=== PATIENT | female | born 1965 | race Caucasian/White ===

== ENCOUNTER → 2017-07-04 | Outpatient (CLI) | payer BC ==
[~2017-07-04] MED LIST: CARDIZEM CD 18180 MG PO; MOTRIN 600600 MG/TAB PO; NORCO 325 MG-51 TAB PO; PERCOCET 325 MG1 TA2 PO; SYNTHROID0.075 MG/T PO; TRICOR145 MG PO
== END ==
LOC: MC.RAD 16:43
DX: Z12.31 Encounter for screening mammogram for malignant neoplasm of breast (principal)

== ENCOUNTER → 2018-08-26 | Outpatient (CLI) | payer BC | LOC: MC.RAD 15:50 | DX: Z12.31 Encounter for screening mammogram for malignant neoplasm of breast (principal) ==

== ENCOUNTER → 2019-09-14 | Outpatient (CLI) | payer BC | LOC: MC.RAD 14:22 | DX: Z12.31 Encounter for screening mammogram for malignant neoplasm of breast (principal) ==

== ENCOUNTER 2020-06-23 06:33 | Day surgery (SDC) | payer BC ==
[~2020-06-23] VITALS: Ht 160 cm; Wt 63.1 kg
[2020-06-23 07:06] VITALS: BP 136/87; PULSE 75; TEMP 98.2
[2020-06-23] MEDS ORDERED: CARDIZEM CD 24240 MG PO (07:18)
[2020-06-23] MEDS ORDERED: LIPITOR20 MG PO (07:18)
[2020-06-23] MEDS ORDERED: COZAAR 25MG25 MG/TAB PO (07:18)
[2020-06-23] MEDS ORDERED: GLUCOPHAGE500 MG/TAB PO (07:20)
[2020-06-23] MEDS ORDERED: ASPIRIN 81M81 MG/TA2 PO (07:20)
[2020-06-23] MEDS ORDERED: ONE-A-DAY ESSE1 EACH PO (07:21)
[2020-06-23 08:25] VITALS: BP 114/64; PULSE 74; TEMP 97
--- NOTE | 2020-06-23 08:25 | NUR ---
Patient brought back to [facility] [address] via cart. Ambulated to recliner with one assist. Placed on monitors, stable. Alert and oriented. Denies pain or nausea. Requests juice and toast. updated via phone. To be driven home by mother. Warm blanket provided, call hernandez within reach. Will continue to monitor.
[2020-06-23 08:40] VITALS: BP 116/76; PULSE 65
--- NOTE | 2020-06-23 08:40 | NUR ---
Patient tolerated food and drink without difficulty. Vital signs stable. Will continue to monitor.
[2020-06-23 08:55] VITALS: BP 123/70; PULSE 61
--- NOTE | 2020-06-23 08:55 | NUR ---
Patient states she is ready to go home at this time. Tolerating food and drink. Vital signs stable. Will continue to monitor.
--- NOTE | 2020-06-23 09:00 | NUR ---
MD in room to review results with patient, all questions answered. IV removed, intact. Mother called to pick patient up. Patient to get dressed at this time. Dimissal instructions reviewed. All questions answered.
--- NOTE | 2020-06-23 09:25 | NUR ---
Patient brought down to lobby via wheel chair. Patient put in mothers truck to be transported back home.
== END 2020-06-23 09:25 | disposition home or self-care (01) ==
LOC: SDCO 06:33
DX: Z12.11 Encounter for screening for malignant neoplasm of colon (principal); D12.8 Benign neoplasm of rectum; E11.9 Type 2 diabetes mellitus without complications; E78.5 Hyperlipidemia, unspecified; I10 Essential (primary) hypertension; E03.9 Hypothyroidism, unspecified; F17.210 Nicotine dependence, cigarettes, uncomplicated; Z79.82 Long term (current) use of aspirin; Z79.899 Other long term (current) drug therapy; Z79.84 Long term (current) use of oral hypoglycemic drugs; Z90.710 Acquired absence of both cervix and uterus; Z88.1 Allergy status to other antibiotic agents; Z88.2 Allergy status to sulfonamides; Z88.8 Allergy status to other drugs, medicaments and biological substances; Z88.5 Allergy status to narcotic agent
CPT/HCPCS: J2704

== ENCOUNTER → 2020-11-15 | Outpatient (CLI) | payer BC ==
[~2020-11-15] MED LIST changes: +ASPIRIN 81M81 MG/TA2 PO; +CARDIZEM CD 24240 MG PO; +COZAAR 25MG25 MG/TAB PO; +GLUCOPHAGE500 MG/TAB PO; +LIPITOR20 MG PO; +ONE-A-DAY ESSE1 EACH PO
== END ==
LOC: MC.RAD 14:45
DX: Z12.31 Encounter for screening mammogram for malignant neoplasm of breast (principal)

== ENCOUNTER → 2021-12-21 | Outpatient (CLI) | payer BC | LOC: MC.RAD 16:25 | DX: Z12.31 Encounter for screening mammogram for malignant neoplasm of breast (principal); Z80.3 Family history of malignant neoplasm of breast ==

== ENCOUNTER → 2023-02-07 | Outpatient (CLI) | payer OTHER | LOC: MC.RAD 16:36 | DX: Z12.31 Encounter for screening mammogram for malignant neoplasm of breast (principal) ==